=== PATIENT | male | born 1995 | race African-American/Black ===

== ENCOUNTER 2022-03-14 04:38 | Emergency (ER) | payer OTHER ==
[2022-03-14 04:52] VITALS: BP 122/74; PULSE 64; RESP 20; TEMP 97.9; BMI 24.3
[2022-03-14] MEDS ORDERED: FAMOTIDINE 20 MG TABLET PO ONE (05:42)
[2022-03-14] MEDS ORDERED: MAG HYDROX/AL HYDROX/SIMETH -MYLANTA- ORAL SUSPENSION PO ONE (05:42)
[2022-03-14] MEDS ORDERED: MAG HYDROX/AL HYDROX/SIMETH 30 ML UNIT-DOSE CUP ONE (05:44)
[2022-03-14] MEDS ORDERED: FAMOTIDINE 20 MG TABLET ONE (05:44)
== END 2022-03-14 08:10 | disposition home or self-care (01) ==
LOC: JER 04:38
DX: R07.9 Chest pain, unspecified (principal)
CPT/HCPCS: 0241U-QW; 71046-TC-FY; 93005; 93010; 99285-25